=== PATIENT | male | born 1975 | race Caucasian/White ===

== ENCOUNTER 2023-01-26 09:52 | Observation (INO) | payer BC ==
[2023-01-26] MEDS ORDERED: SODIUM CHLORIDE 0.9% 1,000 ML IV STA (10:00)
[2023-01-26] MEDS ORDERED: SODIUM CHLORIDE 0.9% 1,000 ML IV ONE (10:12)
[2023-01-26] MEDS ORDERED: PANTOPRAZOLE 40 MG/10 ML VIAL IVP STA (10:13)
[2023-01-26] MEDS ORDERED: KETOROLAC 15 MG/ML 1 ML VIAL IVP STA (10:13)
[2023-01-26 10:24] LABS: Basophils % (A) 0 %; Eosinophils # (A) 0.1 k/uL (0-0.7); Eosinophils % (A) 1 %; HCT 42.8 % (39.0-53.0); HGB 14.3 gm/dL (13.0-17.5); Lymphocytes # (A) 1.3 k/uL (1.0-4.8); Lymphocytes % (A) 12 %; MCH 27.9 pg (25.0-35.0); MCHC 33.4 g/dL (31.0-37.0); MCV 83.5 fL (80.0-100.0); Mean Platelet Volume 7.6; Monocytes # (A) 0.5 k/uL (0-1.0); Monocytes % (A) 4 %; Neutrophils # (A) 9.1 k/uL (1.3-7.7); Neutrophils % (A) 82 %; Platelet Count 258 k/uL (150-450); RBC 5.12 m/uL (4.30-5.90); RDW 13.2 % (11.5-15.5); WBC 11.2 k/uL (3.8-10.6)
--- NOTE | 2023-01-26 10:24 | ED ---
Abdominal Pain HPI - General Chief Complaint: Abdominal Pain Stated Complaint: pain in abd Time Seen by Provider: 01/26/23 09:55 Source: patient, RN notes reviewed Mode of arrival: ambulatory Limitations: no limitations - History of Present Illness Initial Comments: 47 show male presents emergency Department chief complaint of increase abdominal pain. Patient states started Tuesday and Tuesday. He states he was at [facility] had labs and CT was told he had pancreatitis only follow-up with PCP had normal amylase and lipase with increasing pain. He states he hasn't pain is spreading, worsening. He has not been eating and drinking much because of the pain he denies any prior abdominal surgeries. He states he did receive an injection of pain meds at PCPs office yesterday and which helped. Patient has no dysuria no hematuria no significant diarrhea, black stools. - Related Data Home Medications Medication Instructions Recorded Confirmed Thiamine [Vitamin B-1] 100 mg PO HS 01/26/23 01/26/23 Vortioxetine Hydrobromide 5 mg PO HS 01/26/23 01/26/23 [Trintellix] Zinc Gluconate [Zinc] 50 mg PO HS 01/26/23 01/26/23 Allergies Allergy/AdvReac Type Severity Reaction Status Date / Time No Known Allergies Allergy Verified 01/26/23 10:22 Review of Systems ROS Statement: Those systems with pertinent positive or pertinent negative responses have been documented in the HPI. ROS Other: All systems not noted in ROS Statement are negative. Past Medical History Past Medical History: No Reported History History of Any Multi-Drug Resistant Organisms: None Reported Past Surgical History: No Surgical Hx Reported Past Psychological History: No Psychological Hx Reported Smoking Status: Never smoker Past Alcohol Use History: None Reported Past Drug Use History: None Reported General Exam Limitations: no limitations General appearance: alert, in no apparent distress Head exam: Present: atraumatic, normocephalic, normal inspection Neck exam: Present: normal inspection, full ROM. Absent: tenderness, meningismus, lymphadenopathy Respiratory exam: Present: normal lung sounds bilaterally. Absent: respiratory distress, wheezes, rales, rhonchi, stridor Cardiovascular Exam: Present: regular rate, normal rhythm, normal heart sounds. Absent: systolic murmur, diastolic murmur, rubs, gallop, clicks GI/Abdominal exam: Present: soft, tenderness, normal bowel sounds. Absent: distended, guarding, rebound, rigid Neurological exam: Present: alert, oriented X3 Skin exam: Present: warm, dry, intact, normal color. Absent: rash Course Vital Signs 01/26/23 09:56 Temperature 98.3 F Pulse Rate 94 Respiratory 20 Rate Blood Pressure 102/69 O2 Sat by Pulse 98 Oximetry Medical Decision Making - Medical Decision Making UWas pt. sent in by a medical professional or institution (DrPeter, PA, PULPER OPERATOR, urgent care, hospital, or residential...) When possible be specific @ -PCP Dr. Chopra discuss case with me and sent the patient for further evaluation Did you speak to anyone other than the patient for history (EMS, parent, family, police, friend...)? What history was obtained from this source @ -[Dr. Chopra provided significant past medical history, recent ER visit information and outpatient laboratory studies Did you review nursing and triage notes (agree or disagree)? Why? @ -I reviewed and agree with nursing and triage notes Were old charts reviewed (outside hosp., previous admission, EMS record, old EKG, old radiological studies, urgent care reports/EKG's, residential records)? Report findings @ -No old charts were reviewed Differential Diagnosis (chest pain, altered mental status, abdominal pain women, abdominal pain men, vaginal bleeding, weakness, fever, dyspnea, syncope, headache, dizziness, GI bleed, back pain, seizure, CVA, palpatations, mental health, musculoskeletal)? @ -Differential Abdominal Pain Men: Appendicitis, cholecystitis, diverticulosis, ischemic bowel, pancreatitis, hepatitis, UTI, gastroenteritis, AAA, incarcerated hernia, bowel obstruction, constipation, inflammatory bowel, hepatitis, peptic ulcer disease, splenic infarction, perforated viscus, testicular torsion, this is not meant to be an all-inclusive listble EKG interpreted by me (3pts min.). @ -None X-rays interpreted by me (1pt min.). @ -None done CT interpreted by me (1pt min.). @ -CT abdomen and pelvis shows evidence of moderate severe pancreatitis] U/S interpreted by me (1pt. min.). @ [None don] What testing was considered but not performed or refused? (CT, X-rays, U/S, labs)? Why? @ [Non] What meds were considered but not given or refused? Why? @ [Non] Did you discuss the management of the patient with other professionals (professionals i.e. Dr., PA, PULPER OPERATOR, lab, RT, psych nurse, director social service, mental health coordinator, teacher, wildlife officer, case management coordinator)? Give summary @ [N] Was smoking cessation discussed for >3mins.? @ [N] Was critical care preformed (if so, how long)? @ [N] Were there social determinants of health that impacted care today? How? (Homelessness, low income, unemployed, alcoholism, drug addiction, transportation, low edu. Level, literacy, decrease access to med. care, fci, re hab)? @ [N] Was there de-escalation of care discussed even if they declined (Discuss DNR or withdrawal of care, Hospice)? DNR status @ [N] What co-morbidities impacted this encounter? (DM, HTN, Smoking, COPD, CAD, Cancer, CVA, ARF, Chemo, Hep., AIDS, mental health diagnosis, sleep apnea, morbid obesity)? @ [Non] Was patient admitted / discharged? Hospital course, mention meds given and route, prescriptions, significant lab abnormalities, going to OR and other pertinent info. @ -Admitted patient has evidence of acute pancreatitis on CT laboratory studies are unremarkable at discuss case admitting physician who manages patient's, IV fluids, analgesics were ordered.] Undiagnosed new problem with uncertain prognosis? @ [N] Drug Therapy requiring intensive monitoring for toxicity (Heparin, Nitro, Insuli n, Cardizem)? @ [N] Were any procedures done? @ [N] Diagnosis/symptom? @ Acute pancreatitis] Acute, or Chronic, or Acute on Chronic? @ Acute] Uncomplicated (without systemic symptoms) or Complicated (systemic symptoms)? @ Uncomplicated] Side effects of treatment? @ [N] Exacerbation, Progression, or Severe Exacerbation? @ [N] Poses a threat to life or bodily function? How? (Chest pain, USA, MS, pneumonia, PE, COPD, DKA, ARF, appy, cholecystitis, CVA, Diverticulitis, Homicidal, Suicidal, threat to staff... and all critical care pts) @ [N] - Lab Data Result diagrams: 01/26/23 10:05 01/26/23 10:05 Lab Results 01/26/23 01/26/23 01/26/23 Range/Units 10:05 10:05 10:05 WBC 11.2 H (3.8-10.6) k/uL RBC 5.12 (4.30-5.90) m/uL Hgb 14.3 (13.0-17.5) gm/dL Hct 42.8 (39.0-53.0) % MCV 83.5 (80.0-100.0) fL MCH 27.9 (25.0-35.0) pg MCHC 33.4 (31.0-37.0) g/dL RDW 13.2 (11.5-15.5) % Plt Count 258 (150-450) k/uL MPV 7.6 Neutrophils % 82 % Lymphocytes % 12 % Monocytes % 4 % Eosinophils % 1 % Basophils % 0 % Neutrophils # 9.1 H (1.3-7.7) k/uL Lymphocytes # 1.3 (1.0-4.8) k/uL Monocytes # 0.5 (0-1.0) k/uL Eosinophils # 0.1 (0-0.7) k/uL Basophils # 0.0 (0-0.2) k/uL PT 10.7 (9.0-12.0) sec INR 1.0 (<1.2) APTT 26.6 (22.0-30.0) sec Sodium (137-145) mmol/L Potassium (3.5-5.1) mmol/L Chloride (98-107) mmol/L Carbon Dioxide (22-30) mmol/L Anion Gap mmol/L BUN (9-20) mg/dL Creatinine (0.66-1.25) mg/dL Est GFR (CKD-EPI)AfAm (>60 ml/min/1.73 sqM) Est GFR (CKD-EPI)NonAf (>60 ml/min/1.73 sqM) Glucose (74-99) mg/dL Plasma Lactic Acid Win (0.7-2.0) mmol/L Calcium (8.4-10.2) mg/dL Total Bilirubin (0.2-1.3) mg/dL AST (17-59) U/L ALT (4-49) U/L Alkaline Phosphatase (38-126) U/L Total Protein (6.3-8.2) g/dL Albumin (3.5-5.0) g/dL Amylase (30-110) U/L Lipase (23-300) U/L Urine Color Light Yellow Urine Appearance Clear (Clear) Urine pH 6.5 (5.0-8.0) Ur Specific [place] >1.050 H (1.001-1.035) Urine Protein Negative (Negative) Urine Glucose (UA) Negative (Negative) Urine Ketones 2+ H (Negative) Urine Blood Negative (Negative) Urine Nitrite Negative (Negative) Urine Bilirubin Negative (Negative) Urine Urobilinogen <2.0 (<2.0) mg/dL Ur Leukocyte Esterase Negative (Negative) 01/26/23 01/26/23 Range/Units 10:05 10:05 WBC (3.8-10.6) k/uL RBC (4.30-5.90) m/uL Hgb (13.0-17.5) gm/dL Hct (39.0-53.0) % MCV (80.0-100.0) fL MCH (25.0-35.0) pg MCHC (31.0-37.0) g/dL RDW (11.5-15.5) % Plt Count (150-450) k/uL MPV Neutrophils % % Lymphocytes % % Monocytes % % Eosinophils % % Basophils % % Neutrophils # (1.3-7.7) k/uL Lymphocytes # (1.0-4.8) k/uL Monocytes # (0-1.0) k/uL Eosinophils # (0-0.7) k/uL Basophils # (0-0.2) k/uL PT (9.0-12.0) sec INR (<1.2) APTT (22.0-30.0) sec Sodium 138 (137-145) mmol/L Potassium 4.1 (3.5-5.1) mmol/L Chloride 104 (98-107) mmol/L Carbon Dioxide 25 (22-30) mmol/L Anion Gap 9 mmol/L BUN 9 (9-20) mg/dL Creatinine 0.76 (0.66-1.25) mg/dL Est GFR (CKD-EPI)AfAm >90 (>60 ml/min/1.73 sqM) Est GFR (CKD-EPI)NonAf >90 (>60 ml/min/1.73 sqM) Glucose 89 (74-99) mg/dL Plasma Lactic Acid Win 1.0 (0.7-2.0) mmol/L Calcium 8.6 (8.4-10.2) mg/dL Total Bilirubin 1.1 (0.2-1.3) mg/dL AST 22 (17-59) U/L ALT 23 (4-49) U/L Alkaline Phosphatase 56 (38-126) U/L Total Protein 6.4 (6.3-8.2) g/dL Albumin 3.7 (3.5-5.0) g/dL Amylase 60 (30-110) U/L Lipase 100 (23-300) U/L Urine Color Urine Appearance (Clear) Urine pH (5.0-8.0) Ur Specific [place] (1.001-1.035) Urine Protein (Negative) Urine Glucose (UA) (Negative) Urine Ketones (Negative) Urine Blood (Negative) Urine Nitrite (Negative) Urine Bilirubin (Negative) Urine Urobilinogen (<2.0) mg/dL Ur Leukocyte Esterase (Negative) Disposition Clinical Impression: Pancreatitis Disposition: ADMITTED IP TO THIS HOSP Condition: Fair Referrals: Sy Chopra MD [Primary Care Provider] - 1-2 days Justine Jacques MD [STAFF PHYSICIAN] - 02/14/23 2:00 pm (Please come 15mins early to complete paperwork.) Time of Disposition: 12:39
[2023-01-26 10:44] LABS: ALT 23 U/L (4-49); AST 22 U/L (17-59); African American GFR (CKD) >90 (>60 ml/min/1.73 sqM); Albumin 3.7 g/dL (3.5-5.0); Alkaline Phosphatase 56 U/L (38-126); Amylase 60 U/L (30-110); Anion Gap 9 mmol/L; Blood Urea Nitrogen 9 mg/dL (9-20); Calcium 8.6 mg/dL (8.4-10.2); Carbon Dioxide 25 mmol/L (22-30); Chloride 104 mmol/L (98-107); Glucose 89 mg/dL (74-99); Lipase 100 U/L (23-300); Non-African American GFR(CKD) >90 (>60 ml/min/1.73 sqM); Potassium 4.1 mmol/L (3.5-5.1); Sodium 138 mmol/L (137-145); Total Bilirubin 1.1 mg/dL (0.2-1.3); Total Protein 6.4 g/dL (6.3-8.2)
[2023-01-26 10:52] LABS: Partial Thromboplastin Time 26.6 sec (22.0-30.0); Prothrombin Time 10.7 sec (9.0-12.0)
--- NOTE | 2023-01-26 11:05 | CT ---
EXAMINATION TYPE: CT abdomen pelvis w con DATE OF EXAM: 01/26/2023 COMPARISON: None. HISTORY: Abdominal pain not further specified. CT DLP: 887 mGycm, Automated Exposure Control for Dose Reduction was Utilized. CONTRAST: CT scan of the abdomen and pelvis is performed with oral and with IV Contrast, patient injected with 100 ml mL of Isovue 300. FINDINGS: LUNG BASES: Mild bibasilar linear atelectasis. LIVER/GB: Liver is diffusely low dense suggesting diffuse fatty infiltration. No biliary dilatation i s noted. PANCREAS: There is moderate to severe ill-defined fluid in the upper to mid abdomen centered surround ing the pancreas. No well-formed fluid collection is seen. Pancreas is overall normal in size. No are as of nonenhancement identified. No ductal dilatation or glandular calcifications seen. No free air i s seen. SPLEEN: No significant abnormality is seen. ADRENALS: No significant abnormality is seen. KIDNEYS: There is 4 mm calculus upper to mid pole level left kidney coronal image 61. There are 3 darien roximate 2-3 mm. Calculi mid to lower pole right kidney coronal images 52 and 54. There is symmetric cortical medullary uptake and excretion without hydronephrosis seen bilaterally. BOWEL: Slightly suboptimal without enteric contrast. Normal size appendix extends medially and inferi corinne from the cecum. No suspicious small or large bowel dilatation is seen. PROSTATE/SEMINAL VESICLES: No gross abnormality seen. LYMPH NODES: No greater than 1cm abdominal or pelvic lymph nodes are appreciated. OSSEOUS STRUCTURES: No significant abnormality is seen. OTHER: There is a small to moderate size fat-containing umbilical hernia. IMPRESSION: 1. CT findings are suggestive of a fairly moderate to severe but uncomplicated acute pancreatitis. Co rrelate clinically and with pancreatic lab values advised.
[2023-01-26 12:18] LABS: Appearance,Urine Clear (Clear); Bilirubin,Urine Negative (Negative); Blood,Urine Negative (Negative); Color,Urine Light Yellow; Glucose,Urine (UA) Negative (Negative); Ketones,Urine 2+ (Negative); Leukocyte Esterase,Urine Negative (Negative); Nitrite,Urine Negative (Negative); PH, Urine 6.5 (5.0-8.0); Protein,Urine Negative (Negative); Urobilinogen,Urine <2.0 mg/dL (<2.0)
[2023-01-26 12:21] LABS: Specific Gravity,Urine >1.050 (1.001-1.035)
[2023-01-26] MEDS ORDERED: HYDROmorphone 0.5 MG/0.5 ML SYRINGE IVP PRN (12:39)
[2023-01-26] MEDS ORDERED: NALOXONE 0.4 MG/ML 1 ML VIAL IV PRN (12:39)
[2023-01-26] MEDS ORDERED: ONDANSETRON 4 MG/2 ML VIAL IVP PRN (12:39)
[2023-01-26] MEDS: SODIUM CHLORIDE 0.9% 1,000 ML IV SCH ×2 (13:21→18:37)
[2023-01-26] MEDS: KETOROLAC 15 MG/ML 1 ML VIAL IVP PRN ×2 (13:26→20:53)
[2023-01-26] MEDS ORDERED: ACETAMINOPHEN TAB 325 MG TAB PO PRN (14:31)
--- NOTE | 2023-01-26 14:32 | P.HPIM ---
History of Present Illness H&P Date: 01/26/23 Patient is a 47-year-old male with history of depression presenting with abdominal pain. Initially presented last Tuesday with severe abdominal pain going outside hospital. He was diagnosed with acute pancreatitis. He was there for 2 days, and was discharged home. His pain never resolved. He then presented to his PCP, who was concerned about possible other causes of abdominal pain, and was sent to the emergency. He is complaining of chills, denies any fevers. He denies any chest pain, palpitations, shortness of breath, or urinary complaints. He denies any nausea or vomiting but does have occasional diarrhea. Unable to eat due to severe abdominal pain. He denies any family history of any autoimmune diseases or pancreatitis. He denies any alcohol or use, smoking, or illicit drug use. He denies any [id number] supplements other than zinc and thiamine. In the ED, temperature was 98.3, pulse 94, respiratory rate 20, blood pressure 102/69, 98% on room air. CT abdomen and pelvis showed moderate to severe complicated acute pancreatitis. Laboratory workup showed WBC 11.2, lipase 100, total bilirubin 1.1, normal LFTs, rest of the labs were otherwise unremarkable. Patient admitted for acute pancreatitis. Pertinent positives and negatives as discussed in HPI, a complete review of systems was performed and all other systems are negative. Patient seen and examined at bedside. Vital signs reviewed General: nontoxic, no distress, appears at stated age Derm: warm, dry Head: atraumatic, normocephalic, symmetric Eyes: EOMI, no lid lag, anicteric sclera, pupils equal round reactive to light ENT: Nose and ears atraumatic Neck: No thyromegaly, supple Mouth: no lip lesion, mucus membranes moist Cardiovascular: S1S2 reg, no murmur, no edema Lungs: clear to auscultation bilateral, no rhonchi, no rales, no wheeze, no accessory muscle use Abdominal: soft, nontender to palpation, no guarding, no appreciable organomegaly Ext: no gross muscle atrophy, muscle strength muscle strength 5 out of 5 in all 4 extremities, no contractures Neuro: CN II-XII grossly intact Psych: Alert, oriented, appropriate affect Assessment/Plan: Active: Acute pancreatitis -Pain control with oral Tylenol, IV Toradol, IV Dilaudid 0.5 mg every 3 hours needed -Continue IV normal saline 150 mL an hour -IV Zofran 4 mg as needed -IV pantoprazole 40 mg daily -Unclear etiology, lipid panel and right upper quadrant ultrasound pending -Denies any alcohol use Chronic: Depression The patient is admitted with an anticipated less than 2 midnight stay as observation status for evaluation of acute pancreatitis. Surrogate decision-maker: Mother CODE STATUS: Full code DVT prophylaxis: Lovenox Anticipated discharge date: 1-[address]: Home A total of 55 minutes was spent on the care of this complex patient more than 50% of the time was spent in counseling and care coordination. Past Medical History Past Medical History: No Reported History History of Any Multi-Drug Resistant Organisms: None Reported Past Surgical History: No Surgical Hx Reported Past Psychological History: No Psychological Hx Reported Smoking Status: Never smoker Past Alcohol Use History: None Reported Past Drug Use History: None Reported Medications and Allergies Home Medications Medication Instructions Recorded Confirmed Type Thiamine [Vitamin B-1] 100 mg PO HS 01/26/23 01/26/23 History Vortioxetine Hydrobromide 5 mg PO HS 01/26/23 01/26/23 History [Trintellix] Zinc Gluconate [Zinc] 50 mg PO HS 01/26/23 01/26/23 History Allergies Allergy/AdvReac Type Severity Reaction Status Date / Time No Known Allergies Allergy Verified 01/26/23 10:22 Physical Exam Vitals: Vital Signs Temp Pulse Resp BP Pulse Ox 01/26/23 13:28 68 18 112/76 100 01/26/23 12:00 89 18 116/90 96 01/26/23 09:56 98.3 F 94 20 102/69 98 Intake and Output 01/25/23 01/26/23 01/26/23 22:59 06:59 14:59 Other: Weight 82.554 kg Results CBC & Chem 7: 01/26/23 10:05 01/26/23 10:05 Labs: Abnormal Lab Results - Last 24 Hours (Table) 01/26/23 01/26/23 Range/Units 10:05 10:05 WBC 11.2 H (3.8-10.6) k/uL Neutrophils # 9.1 H (1.3-7.7) k/uL Ur Specific [place] >1.050 H (1.001-1.035) Urine Ketones 2+ H (Negative)
--- NOTE | 2023-01-26 15:51 | US ---
EXAMINATION TYPE: US gallbladder DATE OF EXAM: 01/26/2023 COMPARISON: CT abdomen and pelvis earlier today CLINICAL INDICATION: Male, 47 years old with history of pancreatitis; Abdominal pain, pancreatitis TECHNIQUE: Multiple sonographic images of the right upper quadrant are obtained. FINDINGS: EXAM MEASUREMENTS: Liver Length: 16.0 cm Gallbladder Wall: 0.2 cm CBD: 0.8 cm Right Kidney: 11.5 x 5.2 x 4.4 cm Pancreas: Obscured by bowel gas Liver: appears Increased attenuation Gallbladder: no evidence of stones Evidence for sonographic Agudelo's sign: no CBD: dilated Right Kidney: possible stone = 0.4cm mid Visualized portion of pancreas shows no worrisome mass or ductal dilatation. Portions are obscured by overlying bowel gas. Visualized liver is heterogeneously hyperechoic without focal mass or ductal di latation. Common bile duct mildly dilated at 8 mm on ultrasound which correlates with CT image 36 [address] the rafal hepatis. Gradual narrowing towards the duodenal ampulla seen on CT. Punctate right chris al calculi a CT less well seen on ultrasound. No right-sided hydronephrosis is present. IMPRESSION: Mild extrahepatic biliary dilatation without significant intrahepatic biliary dilatation correlates with recent CT in retrospect. No pancreatic ductal dilatation noted. No shadowing mobile g allstones.
[2023-01-26] MEDS: HYDROmorphone 0.5 MG/0.5 ML SYRINGE IVP PRN (18:37)
[2023-01-26] MEDS: THIAMINE 100 MG TAB PO SCH (20:53)
[2023-01-26] MEDS: ZINC SULFATE 220 MG CAP PO SCH (20:53)
[2023-01-26] MEDS: VORTIOXETINE HYDROBROMIDE 5 MG PO SCH (20:53)
[2023-01-26 23:41] LABS: Chol/HDL Ratio 3.29 Ratio; LDL Cholesterol,Calculated 86.8 mg/dL (0.0-131.0); VLDL Calculation 12.82 mg/dL (5.00-40.00)
[2023-01-27] MEDS: SODIUM CHLORIDE 0.9% 1,000 ML IV SCH ×4 (02:36→23:23)
[2023-01-27] MEDS: HYDROmorphone 0.5 MG/0.5 ML SYRINGE IVP PRN ×4 (07:31→23:50)
[2023-01-27] MEDS: PANTOPRAZOLE 40 MG/10 ML VIAL IV SCH (08:37)
[2023-01-27] MEDS ORDERED: HYDROcodone/APAP 5-325MG 1 EACH TAB PO PRN (09:14)
--- NOTE | 2023-01-27 16:04 | P.PN ---
Subjective Progress Note Date: 01/27/23 (Delayed charting seen on 0945) Patient is a 47-year-old male with history of depression presenting with abdominal pain. Initially presented last Tuesday with severe abdominal pain going outside hospital where he was diagnosed with acute pancreatitis. He was there for 2 days, and was discharged home. He then presented to his PCP when his pain was not resolved, who was concerned about possible other causes of abdominal pain, and was sent to the emergency. In the ED, temperature was 98.3, pulse 94, respiratory rate 20, blood pressure 102/69, 98% on room air. CT abdomen and pelvis showed moderate to severe complicated acute pancreatitis. Laboratory workup showed WBC 11.2, lipase 100, total bilirubin 1.1, normal LFTs, rest of the labs were otherwise unremarkable. Patient admitted for acute pancreatitis. Patient seen and examined at bedside. He continues to have some abdominal pain. He would like to eat. We discussed that most of the time he has a pancreatitis are idiopathic. Vital signs reviewed General: nontoxic, no distress, appears at stated age Cardiovascular: S1S2 reg, no murmur, positive posterior tibial pulse bilateral, Lungs: CTA bilateral, no rhonchi, no rales , no accessory muscle use Abdominal: soft, tender to palpation diffusely, no guarding, no appreciable organomegaly Ext: no gross muscle atrophy, no edema, no contractures Neuro: CN II-XI grossly intact, no focal neuro deficits Psych: Alert, oriented, appropriate affect Assessment: Acute pancreatitis Imaging: Gallbladder ultrasound reviewed: Visualized portions of the pancreas so no worrisome masses or ductal dilatation, Bile Duct Mildly Dilated to 8 Mm on Ultrasound, and Gradual Narrowing Towards the Duodenal Ampulla. Mild Extrahepatic Biliary Dilatation Data Review: Vital signs reviewed temperature 97.5, pulse 92, respirations 16, blood pressure 117/74, O2 sat 98% on room air -Cholesterol profile unremarkable Plan: -Start clear liquid diet -Add [place] 7.5, 325, continue with Dilaudid 0.5 mg IV push every 3 hours -Continue with supportive care. Pancreatitis does not resolve patient may warrant ERCP and would require transfer. If pancreatitis is resolving patient isn't symptomatic would recommend outpatient follow-up with GI regarding narrowing of ampulla -Continue with normal saline 150 mL/h -Due to poor oral intake will repeat CMP, mag, and phosphorus in a.m. DVT prophylaxis: Lovenox 40 mg subcutaneous daily Discussed with: Patient, nursing Anticipated discharge date: Pending clinical course Anticipated discharge place: Pending clinical course This dictation was prepared using [employer] voice recognition software. Though every attempt is made to correct errors during during dictation some may still exist. Objective - Vital Signs Vital signs: Vital Signs Temp 97.5 F L 01/27/23 14:30 Pulse 92 01/27/23 14:30 Resp 16 01/27/23 14:30 BP 117/74 01/27/23 14:30 Pulse Ox 98 01/27/23 14:30 FiO2 Intake & Output 01/26/23 01/27/23 01/27/23 18:59 06:59 18:59 Intake Total 1318 Balance 1318 Weight 82.554 kg Intake: Intake, IV Titration 1200 Amount Sodium Chloride 0.9% 1, 1200 000 ml @ 150 mls/hr IV . Q6H40M [facility] Rx#:[id number] Oral 118 Other: Voiding Method Toilet # Voids 3 3 - Labs CBC & Chem 7: 01/26/23 10:05 01/26/23 10:05
[2023-01-27] MEDS: ENOXAPARIN 40 MG/0.4 ML SYRINGE SQ SCH ×2 (16:23→16:47)
[2023-01-27] MEDS: ZINC SULFATE 220 MG CAP PO SCH (20:13)
[2023-01-27] MEDS: THIAMINE 100 MG TAB PO SCH (20:13)
[2023-01-27] MEDS: VORTIOXETINE HYDROBROMIDE 5 MG PO SCH (20:16)
[2023-01-28] MEDS: SODIUM CHLORIDE 0.9% 1,000 ML IV SCH ×4 (06:08→21:09)
[2023-01-28] MEDS: HYDROmorphone 0.5 MG/0.5 ML SYRINGE IVP PRN (06:16)
[2023-01-28] MEDS: ENOXAPARIN 40 MG/0.4 ML SYRINGE SQ SCH (08:41)
[2023-01-28] MEDS: PANTOPRAZOLE 40 MG/10 ML VIAL IV SCH (08:41)
[2023-01-28 08:56] LABS: African American GFR (CKD) 131.2 (60.0-200.0); Albumin 3.1 g/dL (3.8-4.9); Albumin/Globulin Ratio 1.48 (1.60-3.17); Anion Gap 9.1 mmol/L (10.00-18.00); BUN/Creat Ratio 7.14 Ratio (12.00-20.00); Calcium 8.2 mg/dL (8.7-10.3); Carbon Dioxide 22.9 mmol/L (20.0-27.5); Globulin 2.1 g/dL (1.6-3.3); Non-African American GFR(CKD) 113.2 (60.0-200.0); Phosphorus 2.6 mg/dL (2.4-5.1); Potassium 4.1 mmol/L (3.5-5.5); Total Bilirubin 0.6 mg/dL (0.30-1.20); Total Protein 5.2 g/dL (6.2-8.2)
--- NOTE | 2023-01-28 15:01 | P.PN ---
Subjective Progress Note Date: 01/28/23 Patient is a 47-year-old male with history of depression presenting with abdominal pain. Initially presented last Tuesday with severe abdominal pain going outside hospital where he was diagnosed with acute pancreatitis. He was there for 2 days, and was discharged home. He then presented to his PCP when his pain was not resolved, who was concerned about possible other causes of abdo mario pain, and was sent to the emergency. In the ED, temperature was 98.3, pulse 94, respiratory rate 20, blood pressure 102/69, 98% on room air. CT abdomen and pelvis showed moderate to severe complicated acute pancreatitis. Laboratory workup showed WBC 11.2, lipase 100, total bilirubin 1.1, normal LFTs, rest of the labs were otherwise unremarkable. Patient admitted for acute pancreatitis. Patient states that his abdominal pain is better since admission. However he states that he still has some tenderness in his epigastric area. Vital signs reviewed General examination - Alert and Oriented 3 in NAD Heart - + S1S2 no murmurs Lungs - Clear to auscultation Abdomen soft tenderness to palpate in the epigastric area ND +ve BS Extremities - No edema DETECTIVE PRIVATE EYE - Moving all 4 extremities spontaneously Psych - Calm and cooperative Assessment: Acute pancreatitis Imaging: Gallbladder ultrasound reviewed: Blood, bile duct is mildly dilated 8 mm. There is also gradually narrowing to is the duodenal ampulla. Data Review: Vital signs reviewed and stable -Cholesterol profile unremarkable Plan: -Start clear liquid diet -Resume normal saline at 150 mL an hour -Add [place] 7.5, 325, continue with Dilaudid 0.5 mg IV push every 3 hours -Continue with supportive care. Pancreatitis does not resolve patient may warrant ERCP and would require transfer. If pancreatitis is resolving patient isn't symptomatic would recommend outpatient follow-up with GI regarding narrowing of ampulla -Continue with normal saline 150 mL/h -Continue to trend CMP. DVT prophylaxis: Lovenox 40 mg subcutaneous daily Discussed with: Patient, nursing Anticipated discharge date: Pending clinical course Anticipated discharge place: Pending clinical course Objective - Vital Signs Vital signs: Vital Signs Temp 98.2 F 01/28/23 14:39 Pulse 85 01/28/23 14:39 Resp 16 01/28/23 14:39 BP 132/91 01/28/23 14:39 Pulse Ox 98 01/28/23 14:39 FiO2 Intake & Output 01/27/23 01/28/23 01/28/23 18:59 06:59 18:59 Intake Total 1318 118 Balance 1318 118 Intake: Intake, IV Titration 1200 Amount Sodium Chloride 0.9% 1, 1200 000 ml @ 150 mls/hr IV . Q6H40M [facility] Rx#:[id number] Oral 118 118 Other: Voiding Method Toilet # Voids 3 2 7 - Labs CBC & Chem 7: 01/26/23 10:05 01/28/23 06:10 Labs: Abnormal Lab Results - Last 24 Hours (Table) 01/28/23 Range/Units 06:10 Anion Gap 9.10 L (10.00-18.00) mmol/L BUN 5.0 L (9.0-27.0) mg/dL BUN/Creatinine Ratio 7.14 L (12.00-20.00) Ratio Calcium 8.2 L (8.7-10.3) mg/dL Total Protein 5.2 L (6.2-8.2) g/dL Albumin 3.1 L (3.8-4.9) g/dL Albumin/Globulin Ratio 1.48 L (1.60-3.17) g/dL
[2023-01-28] MEDS: THIAMINE 100 MG TAB PO SCH (21:08)
[2023-01-28] MEDS: ZINC SULFATE 220 MG CAP PO SCH (21:08)
[2023-01-28] MEDS: VORTIOXETINE HYDROBROMIDE 5 MG PO SCH (21:19)
[2023-01-29] MEDS: SODIUM CHLORIDE 0.9% 1,000 ML IV SCH (04:58)
[2023-01-29 06:13] LABS: Basophils % (A) 0 %; Eosinophils # (A) 0.2 k/uL (0-0.7); Eosinophils % (A) 2 %; HCT 42.3 % (39.0-53.0); HGB 13.6 gm/dL (13.0-17.5); Lymphocytes # (A) 1.2 k/uL (1.0-4.8); Lymphocytes % (A) 12 %; MCHC 32.2 g/dL (31.0-37.0); MCV 86.9 fL (80.0-100.0); Mean Platelet Volume 7.3; Monocytes # (A) 0.5 k/uL (0-1.0); Monocytes % (A) 5 %; Neutrophils # (A) 8.2 k/uL (1.3-7.7); Neutrophils % (A) 80 %; Platelet Count 296 k/uL (150-450); RBC 4.87 m/uL (4.30-5.90); RDW 12.4 % (11.5-15.5); WBC 10.3 k/uL (3.8-10.6)
[2023-01-29 06:24] LABS: ALT 26 U/L (4-49); AST 34 U/L (17-59); African American GFR (CKD) >90 (>60 ml/min/1.73 sqM); Albumin 3.2 g/dL (3.5-5.0); Albumin/Globulin Ratio 1.2; Alkaline Phosphatase 62 U/L (38-126); Anion Gap 11 mmol/L; Blood Urea Nitrogen 4 mg/dL (9-20); Calcium 8.2 mg/dL (8.4-10.2); Carbon Dioxide 24 mmol/L (22-30); Chloride 104 mmol/L (98-107); Globulin 2.7 g/dL; Glucose 89 mg/dL (74-99); Non-African American GFR(CKD) >90 (>60 ml/min/1.73 sqM); Potassium 4.2 mmol/L (3.5-5.1); Sodium 139 mmol/L (137-145); Total Bilirubin 0.8 mg/dL (0.2-1.3); Total Protein 5.9 g/dL (6.3-8.2)
[2023-01-29 07:29] VITALS: BP 126/76; PULSE 74; RESP 18; TEMP 98.3
[2023-01-29] MEDS: PANTOPRAZOLE 40 MG/10 ML VIAL IV SCH (08:21)
[2023-01-29] MEDS: ENOXAPARIN 40 MG/0.4 ML SYRINGE SQ SCH ×2 (08:21→08:29)
--- NOTE | 2023-01-29 11:45 | P.DS ---
Providers Date of admission: 01/26/23 13:38 Attending physician: Areli Sesay DO Primary care physician: Sy Chopra Hospital Course: Discharge Diagnosis: Acute pancreatitis of unclear etiology. Hospital Course: Patient is a 47-year-old male with history of depression presenting with abdominal pain. Initially presented last Tuesday with severe abdominal pain and went to outside hospital where he was diagnosed with acute pancreatitis. He was there for 2 days, and was discharged home. He then presented to his PCP when his pain was not resolved, who was concerned about possible other causes of abdominal pain, and was sent to the emergency. In the ED, temperature was 98.3, pulse 94, respiratory rate 20, blood pressure 102/69, 98% on room air. CT abdomen and pelvis showed moderate to severe complicated acute pancreatitis. Laboratory workup showed WBC 11.2, lipase 100, total bilirubin 1.1, normal LFTs, rest of the labs were otherwise unremarkable. Patient admitted for acute pancreatitis. Patient's ultrasound of the right upper quadrant showed Gallbladder ultrasound reviewed: Blood, bile duct is mildly dilated 8 mm. There is also gradually narrowing to is the duodenal ampulla. Patient was started on aggressive IV fluids and pain control. At the time of discharge patient is able to tolerate a liquid diet. He states that his pain was improving. Patient wished to go home. Patient was instructed to follow GI outpatient. He was told that if his pain got worse he should go to a facility with is a GI doctor as his ultrasound did show gradual narrowing to the duodenal ampulla and patient may need ERCP. If patient returns to the ED with acute pancreatitis please transfer him to a facility where GI is available if not available at our facility. Patient was told to gradually advance his diet as tolerated. Patient seen and examined at bedside on 01/29/2023.[] Vital signs reviewed and stable. General examination - Alert and Oriented 3 in NAD, appears chronically debilitated Heart - + S1S2 no murmurs Lungs -diminished breath sounds bilaterally Abdomen soft NT ND +ve BS Extremities - No edema HOSTEL PARENT - Moving all 4 extremities spontaneously Psych - Calm and cooperative A total of [33] minutes of time were spent preparing this complex discharge summary . Patient Condition at Discharge: Fair Plan - Discharge Summary Discharge Rx Participant: No New Discharge Prescriptions: No Action Zinc Gluconate [Zinc] 50 mg PO HS Vortioxetine Hydrobromide [Trintellix] 5 mg PO HS Thiamine [Vitamin B-1] 100 mg PO HS Discharge Medication List Thiamine [Vitamin B-1] 100 mg PO HS 01/26/23 [History] Vortioxetine Hydrobromide [Trintellix] 5 mg PO HS 01/26/23 [History] Zinc Gluconate [Zinc] 50 mg PO HS 01/26/23 [History] Follow up Appointment(s)/Referral(s): Sy Chopra MD [Primary Care Provider] - 1-2 days Justine Jacques MD [STAFF PHYSICIAN] - 02/14/23 2:00 pm (Please come 15mins early to complete paperwork.)
== END 2023-01-29 12:35 | disposition home or self-care (01) ==
LOC: EC 09:52 → 6NMEDSUR 13:38
PROVIDERS: ADMIT Internal Medicine; ATTEND Internal Medicine
DX: R10.9 Unspecified abdominal pain (principal); K85.90 Acute pancreatitis without necrosis or infection, unspecified; Z79.899 Other long term (current) drug therapy; F32.A Depression, unspecified
CPT/HCPCS: 96376 ×5; 96361 ×2; 96375 ×2; 96374; 99285; 36415; 80061; 80053 ×3; 82150; 83605; 83690; 83735; 84100; 85025 ×2; 85610; 85730; 81003; 76705; 74177; G0378 ×4; J1885; C9113 ×4; J1170 ×3; Q9967

== ENCOUNTER 2024-06-13 19:05 | Emergency (ER) | payer BC ==
--- NOTE | 2024-06-13 19:36 | ED ---
SOB HPI - General Chief Complaint: Shortness of Breath Stated Complaint: SOB Time Seen by Provider: 06/13/24 19:20 Source: patient, RN notes reviewed Mode of arrival: ambulatory Limitations: no limitations - History of Present Illness Initial Comments: 49-year-old male with no significant past medical history presents to the emergency department with his and a referral from urgent care for chiefly shortness of breath. States that he has been experience shortness of breath, body aches, chills and fevers over the past 2 days. patient was tested for covid, flu, RSV at urgent care and they returned back negative where he was prompted to report to the ER. He denies history of recent prolonged travel, leg swelling or pain, or history of blood clots. He states that the shortness of breath will occur while he is at rest. Denies chest pain, heart palpitations, dizziness lightheadedness. Patient last took Tylenol and Motrin yesterday. - Related Data Home Medications Medication Instructions Recorded Confirmed Thiamine [Vitamin B-1] 100 mg PO HS 01/26/23 01/26/23 Vortioxetine Hydrobromide 5 mg PO HS 01/26/23 01/26/23 [Trintellix] Zinc Gluconate [Zinc] 50 mg PO HS 01/26/23 01/26/23 Allergies Allergy/AdvReac Type Severity Reaction Status Date / Time No Known Allergies Allergy Verified 06/13/24 19:18 Review of Systems ROS Statement: Those systems with pertinent positive or pertinent negative responses have been documented in the HPI. ROS Other: All systems not noted in ROS Statement are negative. Past Medical History Past Medical History: No Reported History History of Any Multi-Drug Resistant Organisms: None Reported Past Surgical History: No Surgical Hx Reported Past Psychological History: No Psychological Hx Reported Smoking Status: Never smoker Past Alcohol Use History: None Reported Past Drug Use History: None Reported General Exam - General Exam Comments Initial Comments: Visual Physical Exam Vital signs reviewed General: Well-appearing, nontoxic, no acute distress. Head: Normocephalic, atraumatic Eyes: PERRLA, EOMI ENT: Airway patent Chest: Nonlabored breathing Skin: No visual rash, normal skin tone Neuro: Alert and oriented 3 Musculoskeletal: No gross abnormalities Limitations: no limitations General appearance: alert, in no apparent distress Head exam: Present: atraumatic, normocephalic, normal inspection Eye exam: Present: normal appearance, PERRL, EOMI. Absent: scleral icterus, conjunctival injection, periorbital swelling ENT exam: Present: normal exam, mucous membranes moist Neck exam: Present: normal inspection. Absent: tenderness, meningismus, lymphadenopathy Respiratory exam: Present: normal lung sounds bilaterally. Absent: respiratory distress, wheezes, rales, rhonchi, stridor Cardiovascular Exam: Present: regular rate, normal rhythm, tachycardia, normal heart sounds. Absent: systolic murmur, diastolic murmur, rubs, gallop, clicks GI/Abdominal exam: Present: soft, normal bowel sounds. Absent: distended, tenderness, guarding, rebound, rigid Extremities exam: Present: normal inspection, full ROM, normal capillary refill. Absent: tenderness, pedal edema, joint swelling, calf tenderness Skin exam: Present: warm, dry, intact, normal color. Absent: rash Course Vital Signs 06/13/24 06/13/24 06/13/24 19:14 21:00 21:50 Temperature 101.0 F H 98.4 F Pulse Rate 110 H 95 Respiratory 22 18 16 Rate Blood Pressure 110/72 95/65 O2 Sat by Pulse 97 97 Oximetry 06/13/24 21:55 Temperature Pulse Rate 81 Respiratory 20 Rate Blood Pressure 126/84 O2 Sat by Pulse 96 Oximetry Medical Decision Making - Medical Decision Making Was pt. sent in by a medical professional or institution (ROBERT Nguyen, LOGISTICS ACCOUNT MANAGER, urgent care, hospital, or intermediate...) When possible be specific @ -Patient was advised by [facility] to report to the emergency department for further evaluation of shortness of breath Did you speak to anyone other than the patient for history (EMS, parent, family, police, friend...)? What history was obtained from this source @ -No Did you review nursing and triage notes (agree or disagree)? Why? @ -I reviewed and agree with nursing and triage notes Were old charts reviewed (outside hosp., previous admission, EMS record, old EKG, old radiological studies, urgent care reports/EKG's, intermediate records)? Report findings @ -No old charts were reviewed Differential Diagnosis (chest pain, altered mental status, abdominal pain women, abdominal pain men, vaginal bleeding, weakness, fever, dyspnea, syncope, headache, dizziness, GI bleed, back pain, seizure, CVA, palpatations, mental health, musculoskeletal)? @ -Differential Dyspnea: Coronary syndrome, arrhythmia, tamponade, asthma, COPD, pulmonary embolism, pneumonia, pneumothorax, pulmonary effusion, anaphylaxis, diabetic ketoacidosis, flailed chest, pulmonary contusion, diaphragmatic rupture, anemia, neuromuscular, this is not meant to be an all-inclusive list. EKG interpreted by me (3pts min.). @ -None X-rays interpreted by me (1pt min.). @ -Chest x-ray no acute cardiopulmonary process or disease CT interpreted by me (1pt min.). @ -None done U/S interpreted by me (1pt. min.). @ -None done What testing was considered but not performed or refused? (CT, X-rays, U/S, la bs)? Why? @ -None What meds were considered but not given or refused? Why? @ -None Did you discuss the management of the patient with other professionals (professionals i.e. , PA, LOGISTICS ACCOUNT MANAGER, lab, RT, psych nurse, social group worker, laboratory supervisor, teacher, protective services officer, catalytic case operator)? Give summary @ -No Was smoking cessation discussed for >3mins.? @ -No Was critical care preformed (if so, how long)? @ -No Were there social determinants of health that impacted care today? How? (Homelessness, low income, unemployed, alcoholism, drug addiction, transportation, low edu. Level, literacy, decrease access to med. care, usp, rehab)? @ -No Was there de-escalation of care discussed even if they declined (Discuss DNR or withdrawal of care, Hospice)? DNR status @ -No What co-morbidities impacted this encounter? (DM, HTN, Smoking, COPD, CAD, Cancer, CVA, ARF, Chemo, Hep., AIDS, mental health diagnosis, sleep apnea, morbid obesity)? @ -None Was patient admitted / discharged? Hospital course, mention meds given and route, prescriptions, significant lab abnormalities, going to OR and other pertinent info. @ -Discharge. 49-year-old male with shortness of breath. Patient is showing no signs of respiratory distress and is statting in the high 90s on room air with no signs of stridorous inhalation or tripoding. On patient's arrival to emergency department he was found to be mildly tachycardic and febrile with a temperature of 101 F, and Patient is treated with a 1000 milligram tablet of Tylenol and will be evaluated for shortness of breath including chest x-ray and laboratory studies.CBC, CMP, coagulation profile within normal limits, D-dimer not elevated, troponin less than 0.012. No acute process. Reevaluation of patient's temperature reveals that is decreased and tachycardia has resolved. Discussion with patient at bedside that symptoms are likely secondary to a viral infection and continue supportive treatment at home. He is provided with a work note. All questions answered at bedside and strict return parameters evelia with the patient he is verbalized understanding. Discussed with Dr. Elizabeth Undiagnosed new problem with uncertain prognosis? @ -No Drug Therapy requiring intensive monitoring for toxicity (Heparin, Nitro, Insulin, Cardizem)? @ -No Were any procedures done? @ -No Diagnosis/symptom? @ -Shortness of breath, fever, viral syndrome Acute, or Chronic, or Acute on Chronic? @ -Acute Uncomplicated (without systemic symptoms) or Complicated (systemic symptoms)? @ -uncomplicated Side effects of treatment? @ -No Exacerbation, Progression, or Severe Exacerbation? @ -No Poses a threat to life or bodily function? How? (Chest pain, USA, OR, pneumonia, PE, COPD, DKA, ARF, appy, cholecystitis, CVA, Diverticulitis, Homicidal, Suicidal, threat to staff... and all critical care pts) @ -No - Lab Data Result diagrams: 06/13/24 19:45 06/13/24 19:45 Lab Results 06/13/24 06/13/24 06/13/24 Range/Units 19:45 19:45 19:45 WBC 8.3 (3.8-10.6) k/uL RBC 5.23 (4.30-5.90) m/uL Hgb 14.7 (13.0-17.5) gm/dL Hct 45.0 (39.0-53.0) % MCV 86.0 (80.0-100.0) fL MCH 28.2 (25.0-35.0) pg MCHC 32.8 (31.0-37.0) g/dL RDW 12.6 (11.5-15.5) % Plt Count 230 (150-450) k/uL MPV 7.4 Neutrophils % 79 % Lymphocytes % 14 % Monocytes % 5 % Eosinophils % 0 % Basophils % 1 % Neutrophils # 6.5 (1.3-7.7) k/uL Lymphocytes # 1.1 (1.0-4.8) k/uL Monocytes # 0.5 (0-1.0) k/uL Eosinophils # 0.0 (0-0.7) k/uL Basophils # 0.1 (0-0.2) k/uL PT 11.1 (10.0-12.5) sec INR 1.0 (<1.2) APTT 27.5 (22.0-30.0) sec D-Dimer 0.29 (<0.60) mg/L FEU Sodium 137 (137-145) mmol/L Potassium 3.7 (3.5-5.1) mmol/L Chloride 104 (98-107) mmol/L Carbon Dioxide 22 (22-30) mmol/L Anion Gap 11 mmol/L BUN 11 (9-20) mg/dL Creatinine 1.03 (0.66-1.25) mg/dL Est GFR (CKD-EPI)AfAm >90 (>60 ml/min/1.73 sqM) Est GFR (CKD-EPI)NonAf 86 (>60 ml/min/1.73 sqM) Glucose 110 H (74-99) mg/dL Calcium 9.3 (8.4-10.2) mg/dL Magnesium 1.8 (1.6-2.3) mg/dL Total Bilirubin 0.5 (0.2-1.3) mg/dL AST 19 (17-59) U/L ALT 18 (4-49) U/L Alkaline Phosphatase 55 (38-126) U/L Troponin I (0.000-0.034) ng/mL Total Protein 7.0 (6.3-8.2) g/dL Albumin 4.3 (3.5-5.0) g/dL 06/13/24 Range/Units 19:45 WBC (3.8-10.6) k/uL RBC (4.30-5.90) m/uL Hgb (13.0-17.5) gm/dL Hct (39.0-53.0) % MCV (80.0-100.0) fL MCH (25.0-35.0) pg MCHC (31.0-37.0) g/dL RDW (11.5-15.5) % Plt Count (150-450) k/uL MPV Neutrophils % % Lymphocytes % % Monocytes % % Eosinophils % % Basophils % % Neutrophils # (1.3-7.7) k/uL Lymphocytes # (1.0-4.8) k/uL Monocytes # (0-1.0) k/uL Eosinophils # (0-0.7) k/uL Basophils # (0-0.2) k/uL PT (10.0-12.5) sec INR (<1.2) APTT (22.0-30.0) sec D-Dimer (<0.60) mg/L FEU Sodium (137-145) mmol/L Potassium (3.5-5.1) mmol/L Chloride (98-107) mmol/L Carbon Dioxide (22-30) mmol/L Anion Gap mmol/L BUN (9-20) mg/dL Creatinine (0.66-1.25) mg/dL Est GFR (CKD-EPI)AfAm (>60 ml/min/1.73 sqM) Est GFR (CKD-EPI)NonAf (>60 ml/min/1.73 sqM) Glucose (74-99) mg/dL Calcium (8.4-10.2) mg/dL Magnesium (1.6-2.3) mg/dL Total Bilirubin (0.2-1.3) mg/dL AST (17-59) U/L ALT (4-49) U/L Alkaline Phosphatase (38-126) U/L Troponin I <0.012 (0.000-0.034) ng/mL Total Protein (6.3-8.2) g/dL Albumin (3.5-5.0) g/dL Disposition Clinical Impression: SOB (shortness of breath), Fever Disposition: HOME SELF-CARE Condition: Good Instructions (If sedation given, give patient instructions): Fever in Adults (ED) Additional Instructions: Return to the emergency department for any new or worsening symptoms. Continue Tylenol Motrin at home for symptomatic and fever relief. Increase oral hydration. Is patient prescribed a controlled substance at d/c from ED?: No Referrals: Sy Chopra MD [Primary Care Provider] - 1-2 days Time of Disposition: 21:20
--- NOTE | 2024-06-13 20:00 | XR ---
EXAMINATION TYPE: XR chest 2V DATE OF EXAM: 06/13/2024 7:50 PM CLINICAL INDICATION:Male, 49 years old with history of SOB; [facility] COMPARISON: None. TECHNIQUE: XR chest 2V Frontal and lateral views of the chest. FINDINGS: Lungs/Pleura: There is no evidence of pleural effusion, focal consolidation, or pneumothorax. Pulmonary vascularity: Unremarkable. Heart/mediastinum: Cardiomediastinal silhouette is unremarkable. Musculoskeletal: No acute osseous pathology. IMPRESSION: No acute cardiopulmonary disease/process. [facility], , 06/13/2024 7:58 PM
[2024-06-13 20:16] LABS: Basophils # (A) 0.1 k/uL (0-0.2); Basophils % (A) 1 %; Eosinophils % (A) 0 %; HGB 14.7 gm/dL (13.0-17.5); Lymphocytes # (A) 1.1 k/uL (1.0-4.8); Lymphocytes % (A) 14 %; MCH 28.2 pg (25.0-35.0); MCHC 32.8 g/dL (31.0-37.0); Mean Platelet Volume 7.4; Monocytes # (A) 0.5 k/uL (0-1.0); Monocytes % (A) 5 %; Neutrophils # (A) 6.5 k/uL (1.3-7.7); Neutrophils % (A) 79 %; Platelet Count 230 k/uL (150-450); RBC 5.23 m/uL (4.30-5.90); RDW 12.6 % (11.5-15.5); WBC 8.3 k/uL (3.8-10.6)
[2024-06-13 20:25] LABS: ALT 18 U/L (4-49); AST 19 U/L (17-59); African American GFR (CKD) >90 (>60 ml/min/1.73 sqM); Albumin 4.3 g/dL (3.5-5.0); Alkaline Phosphatase 55 U/L (38-126); Anion Gap 11 mmol/L; Blood Urea Nitrogen 11 mg/dL (9-20); Calcium 9.3 mg/dL (8.4-10.2); Carbon Dioxide 22 mmol/L (22-30); Chloride 104 mmol/L (98-107); Glucose 110 mg/dL (74-99); Magnesium 1.8 mg/dL (1.6-2.3); Non-African American GFR(CKD) 86 (>60 ml/min/1.73 sqM); Potassium 3.7 mmol/L (3.5-5.1); Sodium 137 mmol/L (137-145); Total Bilirubin 0.5 mg/dL (0.2-1.3)
[2024-06-13 20:27] LABS: Partial Thromboplastin Time 27.5 sec (22.0-30.0); Prothrombin Time 11.1 sec (10.0-12.5)
[2024-06-13] MEDS: ACETAMINOPHEN TAB 500 MG TAB PO STA (21:07)
[2024-06-13 22:04] VITALS: TEMP 98.4
[2024-06-13 22:55] VITALS: BP 126/84; PULSE 81
[2024-06-13 22:59] VITALS: RESP 20
== END 2024-06-13 21:55 | disposition home or self-care (01) ==
LOC: EC 19:05
CPT/HCPCS: 36415; 71046; 80053; 83735; 84484; 85025; 85379; 85610; 85730; 93005; 99285